=== PATIENT | female | born 1970 | race Caucasian/White ===

== ENCOUNTER 2016-07-17 13:26 | Emergency (ER) | payer OTHER ==
[~2016-07-17] VITALS: Wt 84.5 kg
[~2016-07-17 13:26] MED LIST: ALBU18HF INHALATION; OMEPRAZOLE PO; TAGAMET PO
[2016-07-17 15:42] LABS: ADD UMIC YES; UR BILIRUBIN (Dip) NEGATIVE (NEGATIVE); UR BLOOD (Dip) 2+ (NEGATIVE); UR CLARITY CLEAR (CLEAR); UR COLOR LT. YELLOW (YELLOW); UR GLUCOSE (Dip) NEGATIVE (NEGATIVE); UR KETONES (Dip) NEGATIVE (NEGATIVE); UR LEUKOCYTE ESTERASE (Dip) NEGATIVE (NEGATIVE); UR NITRITE (Dip) NEGATIVE (NEGATIVE); UR TOTAL PROTEIN (Dip) NEGATIVE (NEGATIVE); UR UROBILINOGEN (Dip) 0.2 E.U./dL (0.1-1.0)
[2016-07-17 15:59] LABS: ADD SCAN DIFF NO
[2016-07-17 16:01] LABS: BASOPHILS % 0.2 % (0.0-2.0); EOSINOPHILS % 0.1 % (0.0-7.0); HEMATOCRIT 42.6 % (37.0-47.0); HEMOGLOBIN 14.1 g/dl (12.0-16.0); LYMPHOCYTES # 1.6 10^3/ul (0.8-2.9); LYMPHOCYTES % 9.6 % (15.0-51.0); MEAN CORPUSCULAR HEMOGLOBIN 29.5 pg (29.0-33.0); MEAN CORPUSCULAR HGB CONC 33.1 g/dl (32.0-37.0); MEAN CORPUSCULAR VOLUME 89.1 fl (82.0-101.0); MEAN PLATELET VOLUME 10.8 fl (7.4-10.4); MONOCYTE # 0.5 10^3/ul (0.3-0.9); MONOCYTES % 3.1 % (0.0-11.0); NEUTROPHIL # 14.2 10^3/ul (1.6-7.5); NEUTROPHILS % 86.6 % (39.0-77.0); PLATELET COUNT 295 10^3/UL (140-415); RED BLOOD COUNT 4.78 10^6/ul (4.20-5.40); RED CELL DISTRIBUTION WIDTH 13.1 % (11.5-14.5); WHITE BLOOD COUNT 16.4 10^3/ul (4.8-10.8)
[2016-07-17 16:20] LABS: ALANINE AMINOTRANSFERASE 36 IU/L (13-69); ALBUMIN 4.7 g/dl (3.3-4.9); ALBUMIN/GLOBULIN RATIO 1.74; ALKALINE PHOSPHATASE 66 IU/L (42-121); ANION GAP 13 (8-16); ASPARTATE AMINO TRANSFERASE 22 IU/L (15-46); BILIRUBIN,INDIRECT 0.1 mg/dl (0-1.1); BILIRUBIN,TOTAL 0.1 mg/dl (0.2-1.3); BLOOD UREA NITROGEN 12 mg/dl (7-20); CALCIUM 9.4 mg/dl (8.4-10.2); CARBON DIOXIDE 23 mmol/L (21-31); CHLORIDE 109 mmol/L (97-110); CREATININE 0.73 mg/dl (0.44-1.00); GLUCOSE 128 mg/dl (70-220); POTASSIUM 4.1 mmol/L (3.5-5.1); SODIUM 141 mmol/L (135-144); TOTAL PROTEIN 7.4 g/dl (6.1-8.1)
--- NOTE | 2016-07-17 16:32 | RADRPT ---
PROCEDURE: Chest Radiograph. CLINICAL INDICATION: Chest pain TECHNIQUE: Single frontal chest radiograph. COMPARISON: Chest radiograph 09/16/2012 FINDINGS: The cardiomediastinal silhouette is within normal limits. No infiltrate or effusion is seen. Th e bones are intact. IMPRESSION: 1. Unremarkable chest radiograph. RPTAT: KK .Iftikhar English MD, MD Date Time Electronically viewed and signed by .Iftikhar English MD, on 07/17/2016 16:32 .B/
[2016-07-17 16:33] LABS: TROPONIN-I < 0.012 ng/ml (0.00-0.12)
[2016-07-17] MEDS ORDERED: FAMO-18 PO (17:02)
--- NOTE | 2016-07-17 17:40 | ERD ---
ER Documentation Chief Complaint Date/Time DATE: 07/17/16 TIME: 17:37 Chief Complaint ap today HPI 45-year-old female patient with no significant past medical history presents the ED complaining of left upper quadrant pain, left elbow pain and left ear pain that started 3 days ago. Patient reports that the pain as throbbing. Denies any injuries or trauma. States that her last menses was sometime last week. Reports that she had a normal bowel movement yesterday. Denies any chest pain, shortness of breath, wheezing, nausea, vomiting, diarrhea. ROS All systems reviewed and are negative except as per history of present illness. Medications Home Meds Reported Medications Albuterol Sulfate* (Ventolin HFA*) 18 Gm Hfa.aer.ad, 2 PUFF INHALATION Q4H, #1 INHALER 06/30/15 [Tagamet] No Conflict Check, PO BID 06/30/15 [Omeprazole] No Conflict Check, PO BID 06/30/15 Allergies Allergies: Coded Allergies: Calcium Carbonate (Verified Allergy, Mild, SOB, 09/16/12) Citric Acid (Verified Allergy, Mild, SOB, 09/16/12) acetaminophen (Verified Allergy, Mild, 09/16/12) aspirin (Verified Allergy, Mild, SOB, 09/16/12) sodium bicarbonate (Verified Allergy, Mild, SOB, 09/16/12) ibuprofen (Verified Allergy, Unknown, SOB, DYSPNEA, 06/30/15) PMhx/Soc History of Surgery: Yes (CHOLECYSTECTOMY, TUBAL LIGATION) Anesthesia Reaction: No Hx Neurological Disorder: No Hx Respiratory Disorders: Yes (ASTHMA, DAILY INHALER USE) Hx Cardiac Disorders: Yes (HTN, PREVIOUSLY ON MEDS, NOW DIET CONTROLLED) Hx Psychiatric Problems: No Hx Miscellaneous Medical Probl: No Hx Alcohol Use: No Hx Substance Use: No Hx Tobacco Use: No Smoking Status: Never smoker Physical Exam Vitals Vital Signs Date Time Temp Pulse Resp B/P Pulse Ox O2 Delivery O2 Flow Rate FiO2 07/17/16 13:29 98.9 94 20 145/69 99 Physical Exam Const: [id number], well-nourished. In no acute distress. Head: Atraumatic, normocephalic Eyes: Normal Conjunctiva without injection. No purulent discharge. ENT: Normal external ear, nose. Moist oropharynx without tonsillar exudates. Non -erythematous pharynx. Uvula midline. No drooling. No trismus. Neck: No cervical midline tenderness. Full range of motion. No meningismus. No cervical lymphadenopathy. No JVD. Resp: Clear to auscultation bilaterally. No wheezing, rhonchi, rales, or crackles. No accessory muscle use. No retractions. Cardio: Regular rate and rhythm. No murmurs, rubs or gallops. Abd: Soft, left upper quadrant tenderness, non distended. Normal bowel sounds. No palpable masses. No rebound tenderness. No guarding. Negative McBurney's point. Negative psoas sign. Negative obturator sign. Skin: No petechiae or rashes Back: No midline tenderness. No CVA tenderness. Ext: No cyanosis, or edema. Neur: Awake and alert. Normal gait. Normal coordination. Psych: Normal Mood and Affect Result Diagram: 07/17/16 1545 07/17/16 1545 Results 24 hrs Laboratory Tests Test 07/17/16 15:35 07/17/16 15:45 Urine Color LT. YELLOW Urine Clarity CLEAR Urine pH 5.5 Urine Specific [place] <=1.005 Urine Ketones NEGATIVE Urine Nitrite NEGATIVE Urine Bilirubin NEGATIVE Urine Urobilinogen 0.2 E.U./dL Urine Leukocyte Esterase NEGATIVE Urine Microscopic RBC 2-5/HPF Urine Microscopic WBC NONE SEEN/HPF Urine Epithelial Cells OCCASIONAL Urine Hemoglobin 2+ Urine Glucose NEGATIVE% Urine Total Protein NEGATIVE White Blood Count 16.410^3/ul Red Blood Count 4.7810^6/ul Hemoglobin 14.1g/dl Hematocrit 42.6% Mean Corpuscular Volume 89.1fl Mean Corpuscular Hemoglobin 29.5pg Mean Corpuscular Hemoglobin Concent 33.1g/dl Red Cell Distribution Width 13.1% Platelet Count 93828^3/UL Mean Platelet Volume 10.8fl Neutrophils % 86.6% Lymphocytes % 9.6% Monocytes % 3.1% Eosinophils % 0.1% Basophils % 0.2% Nucleated Red Blood Cells % 0.0/100WBC Neutrophils # 14.210^3/ul Lymphocytes # 1.610^3/ul Monocytes # 0.510^3/ul Eosinophils # 0.010^3/ul Basophils # 0.010^3/ul Nucleated Red Blood Cells # 0.010^3/ul Sodium Level 141mmol/L Potassium Level 4.1mmol/L Chloride Level 109mmol/L Carbon Dioxide Level 23mmol/L Anion Gap 13 Blood Urea Nitrogen 12mg/dl Creatinine 0.73mg/dl Glucose Level 128mg/dl Calcium Level 9.4mg/dl Total Bilirubin 0.1mg/dl Direct Bilirubin 0.00mg/dl Indirect Bilirubin 0.1mg/dl Aspartate Amino Transf (AST/SGOT) 22IU/L Alanine Aminotransferase (ALT/SGPT) 36IU/L Alkaline Phosphatase 66IU/L Troponin I < 0.012ng/ml Total Protein 7.4g/dl Albumin 4.7g/dl Globulin 2.70g/dl Albumin/Globulin Ratio 1.74 Lipase 83U/L Procedures/MDM This is a 45-year-old female patient with a past medical history of asthma and status post cholecystectomy presents to the ED complaining of left upper quadrant, left elbow and ear pain that started yesterday. Patient is afebrile and nontoxic-appearing. Patient has normal vital signs. Patient was further worked up with CBC, CMP, lipase, UA, urine , troponin, CXR. Patient denied wanting any pain medications. CBC: No leukocytosis. No e/o of systemic infection. No e/o anemia. CMP: No e/o severe acidosis, alkalosis, renal failure, diabetic ketoacidosis, liver disease Lipase within normal limits. Urine: No leukocyte esterase, no nitrites, no hematuria. Urine : Negative Troponin < 0.012 PROCEDURE: Chest Radiograph. CLINICAL INDICATION: Chest pain TECHNIQUE: Single frontal chest radiograph. COMPARISON: Chest radiograph 09/16/2012 FINDINGS: The cardiomediastinal silhouette is within normal limits. No infiltrate or effusion is seen. The bones are intact. IMPRESSION: 1. Unremarkable chest radiograph. EKG reviewed and interpreted by Dr. Reis Rate/Rhythm: [89 bpm, Normal Sinus Rhythm] No ectopy, no ST elevations, normal axis. QRS, ST, T-waves: [No changes consistent w/ acute ischemia] Impression: [No evidence of ischemia or arrhythmia] Differentials includes gastritis vs. GERD. Low suspicion for acute myocardial infarction, pneumothorax, pneumonia, cardiac tamponade, pulmonary embolism, AAA , aortic dissection, Boerhaave's syndrome, cardiac dysrhythmias,meningitis, intracranial bleed, seizure, stroke, TIA or other emergent conditions. Low suspicion for cholecystitis, choledocholithiasis, cholangitis, pancreatitis, appendicitis, bowel obstruction, ileus, volvulus, nephrolithiasis, pyelonephritis, hepatitis, perforated viscus, diverticulitis, abdominal hernia, acute abdomen, mesenteric ischemia or other emergent conditions. Follow up with primary care physician in 1-2 days for referral to surgery consultant. Instructed patient to return to the ED sooner for any worsening symptoms. Patient's questions were answered. Patient understood and agreed with discharge plan. Patient discharged stable. Departure Diagnosis: Primary Impression: Abdominal pain Abdominal location: left upper quadrant Qualified Code: R10.12 - Left upper quadrant pain Condition: Stable Patient Instructions: Abdominal Pain Referrals: COUNT INCLUDES THE [facility] YOU HAVE RECEIVED A MEDICAL SCREENING EXAM AND THE RESULTS INDICATE THAT YOU DO NOT HAVE A CONDITION THAT REQUIRES URGENT TREATMENT IN THE EMERGENCY DEPARTMENT. FURTHER EVALUATION AND TREATMENT OF YOUR CONDITION CAN WAIT UNTIL YOU ARE SEEN IN YOUR DOCTORS OFFICE WITHIN THE NEXT 1-2 DAYS. IT IS YOUR RESPONSIBILITY TO MAKE AN APPOINTMENT FOR FOLOW-UP CARE. IF YOU HAVE A PRIMARY DOCTOR --you should call your primary doctor and schedule an appointment IF YOU DO NOT HAVE A PRIMARY DOCTOR YOU CAN CALL OUR PHYSICIAN REFERRAL HOTLINE AT IF YOU CAN NOT AFFORD TO SEE A PHYSICIAN YOU CAN CHOSE FROM THE FOLLOWING [facility] [address] [facility]. [facility] [address] [facility]. [facility] [address] [facility] [address] [facility]. [facility] [address] [facility]. [facility]. [address] [facility]. [facility] YOU HAVE RECEIVED A MEDICAL SCREENING EXAM AND THE RESULTS INDICATE THAT YOU DO NOT HAVE A CONDITION THAT REQUIRES URGENT TREATMENT IN THE EMERGENCY DEPARTMENT. FURTHER EVALUATION AND TREATMENT OF YOUR CONDITION CAN WAIT UNTIL YOU ARE SEEN IN YOUR DOCTORS OFFICE WITHIN THE NEXT 1-2 DAYS. IT IS YOUR RESPONSIBILITY TO MAKE AN APPOINTMENT FOR FOLOW-UP CARE. IF YOU HAVE A PRIMARY DOCTOR --you should call your primary doctor and schedule and appointment IF YOU DO NOT HAVE A PRIMARY DOCTOR YOU CAN CALL OUR PHYSICIAN REFERRAL HOTLINE AT . IF YOU CAN NOT AFFORD TO SEE A PHYSICIAN YOU CAN CHOSE FROM THE FOLLOWING [facility] INSTITUTIONS: [facility] [address] [place] [address] [facility] [place] [place] [address] [place] [address] [facility] [address] [place] [address] [facility] URGENT CARE/SPECIALTIES Additional Instructions: Call your primary care doctor TOMORROW for an appointment during the next 1-2 days for a referral to a surgery consultant.See the doctor sooner or return here if your condition worsens before your appointment time. TY TA PA-C Jul 17, 2016 17:40
== END 2016-07-17 17:11 | disposition home or self-care (01) ==
LOC: FTE 13:26
DX: R10.12 Left upper quadrant pain (principal); I10 Essential (primary) hypertension; J45.909 Unspecified asthma, uncomplicated
CPT/HCPCS: 71010; 80053; 81001; 83690; 84484; 85025; 93005

== ENCOUNTER 2016-11-28 12:15 | Emergency (ER) | payer OTHER ==
[~2016-11-28] VITALS: Ht 157.5 cm; Wt 80.0 kg
[2016-11-28 12:17] VITALS: Ht 157.5 cm; Wt 80.0 kg
[2016-11-28 14:01] LABS: URINE BLOOD (Dip) POC 2+ (NEGATIVE)
--- NOTE | 2016-11-28 15:30 | RADRPT ---
PROCEDURE: US Pelvis CLINICAL INDICATION: pelvic pain TECHNIQUE: Multiple sonographic images of the pelvis were obtained utilizing a transabdominal and endovaginal technique. The images were reviewed on a PACS workstation. COMPARISON: None. LMP: 11/11/2016 FINDINGS: The uterus measures 9.3 x 5.2 x 6.0 cm. There is trace endocervical fluid with a spine level endome trial thickness of 10 mm. Several sub-centimeter Nabothian cysts are identified. There is a 2.5 cm posterior submucosal and subserosal uterine fibroid at the level of the mid body w ith mild anterior displacement of the endometrium. There is a 3.2 cm anterior submucosal uterine fibroid at the level of the upper body with prominent posterior displacement of the endometrium. The right ovary measures 2.2 x 1.4 x 1.8 cm. The left ovary measures 3.6 x 1.7 x 2.5 cm. There is no rmal vascular flow in both ovaries. There is a 1.9 cm thick-walled cystic lesion with low level internal echoes and prominent peripheral vascular flow in the left ovary which is likely a hemorrhagic/corpus luteal cyst. No significant pelvic free fluid is identified. IMPRESSION: 2 submucosal uterine fibroids are identified measuring up to 3.2 cm with displacement of the endomet rium. 1.9 cm complex cystic lesion in the left ovary is likely a hemorrhagic/corpus luteal cyst. Trace endocervical fluid without evidence of abnormal endometrial thickening or vascularity may be r elated to stage of the menstrual cycle. RPTAT: EE Physician Esequiel Date Time Electronically viewed and signed by Physician Esequiel on 11/28/2016 15:29 /
[2016-11-28 15:48] LABS: ADD UMIC YES; UR ASCORBIC ACID NEGATIVE (NEGATIVE); UR BILIRUBIN (Dip) NEGATIVE (NEGATIVE); UR BLOOD (Dip) 2+ mg/dL (NEGATIVE); UR CLARITY CLEAR (CLEAR); UR COLOR YELLOW (YELLOW); UR GLUCOSE (Dip) NEGATIVE (NEGATIVE); UR KETONES (Dip) NEGATIVE (NEGATIVE); UR LEUKOCYTE ESTERASE (Dip) NEGATIVE Leu/ul (NEGATIVE); UR NITRITE (Dip) NEGATIVE (NEGATIVE); UR RBC 3 /HPF (0-5); UR SPECIFIC GRAVITY (Dip) 1.006 (1.003-1.030); UR TOTAL PROTEIN (Dip) NEGATIVE (NEGATIVE); UR UROBILINOGEN (Dip) NEGATIVE (NEGATIVE)
[2016-11-28 16:07] VITALS: BP 158/86; PULSE 85; RESP 16; TEMP 97.9
--- NOTE | 2016-11-28 16:34 | ERD ---
ER Documentation Chief Complaint Chief Complaint lower abd pain/back pain x 2 wks with dysuria. no fevers HPI Patient is a 46-year-old female presenting to the emergency department with complaints of suprapubic pain and increased urinary frequency intermittently for the past 2 weeks. She states her pain radiates to the lower back. She rates 2 out of 10 on the pain scale. Symptoms have worsened. She denies fevers , chills, or other symptoms at this time. ROS All systems reviewed and are negative except as per history of present illness. Medications Home Meds Reported Medications Albuterol Sulfate* (Ventolin HFA*) 18 Gm Hfa.aer.ad, 2 PUFF INHALATION Q4H, #1 INHALER 06/30/15 [Tagamet] No Conflict Check, PO BID 06/30/15 [Omeprazole] No Conflict Check, PO BID 06/30/15 Allergies Allergies: Coded Allergies: acetaminophen (Verified Allergy, Mild, 11/28/16) aspirin (Verified Allergy, Mild, SOB, 11/28/16) calcium carbonate (Verified Allergy, Mild, SOB, 11/28/16) citric acid (Verified Allergy, Mild, SOB, 11/28/16) sodium bicarbonate (Verified Allergy, Mild, SOB, 11/28/16) ibuprofen (Verified Allergy, Unknown, SOB, DYSPNEA, 11/28/16) PMhx/Soc History of Surgery: Yes (CHOLECYSTECTOMY, TUBAL LIGATION) Anesthesia Reaction: No Hx Neurological Disorder: No Hx Respiratory Disorders: Yes (ASTHMA, DAILY INHALER USE) Hx Cardiac Disorders: Yes (HTN, PREVIOUSLY ON MEDS, NOW DIET CONTROLLED) Hx Psychiatric Problems: No Hx Miscellaneous Medical Probl: No Hx Alcohol Use: No Hx Substance Use: No Hx Tobacco Use: No Smoking Status: Never smoker Physical Exam Vitals Vital Signs Date Time Temp Pulse Resp B/P Pulse Ox O2 Delivery O2 Flow Rate FiO2 11/28/16 16:07 97.9 85 16 158/86 96 Room Air 11/28/16 12:17 97.8 89 18 160/98 96 Physical Exam Const: Nontoxic, well-appearing female in no acute distress. Head: Atraumatic Eyes: Normal Conjunctiva ENT: Normal External Ears, Nose and Mouth. Neck: Full range of motion..~ No meningismus. Resp: Clear to auscultation bilaterally Cardio: Regular rate and rhythm, no murmurs Abd: Soft, non tender, non distended. Normal bowel sounds. No suprapubic tenderness. No McBurney's point tenderness. No rebound tenderness or guarding. Skin: No petechiae or rashes Back: No midline or flank tenderness Ext: No cyanosis, or edema Neur: Awake and alert Psych: Normal Mood and Affect Results 24 hrs Laboratory Tests Test 11/28/16 13:50 11/28/16 14:01 Urine Color YELLOW Urine Clarity CLEAR Urine pH 6.0 Urine Specific [place] 1.006 Urine Ketones NEGATIVEmg/dL Urine Nitrite NEGATIVEmg/dL Urine Bilirubin NEGATIVEmg/dL Urine Urobilinogen NEGATIVEmg/dL Urine Leukocyte Esterase NEGATIVELeu/ul Urine Microscopic RBC 3/HPF Urine Microscopic WBC 0/HPF Urine Hemoglobin 2+mg/dL Urine Glucose NEGATIVEmg/dL Urine Total Protein NEGATIVEmg/dl Bedside Urine pH (LAB) 5.5 Bedside Urine Protein (LAB) Negative Bedside Urine Glucose (UA) Negative Bedside Urine Ketones (LAB) Negative Bedside Urine Blood 2+ Bedside Urine Nitrite (LAB) Negative Bedside Urine Leukocyte Esterase (L Negative Procedures/MDM 46-year-old female presenting to the emergency department with complaints of suprapubic pain with radiation to the back. Physical examination is essentially unremarkable. Pelvic ultrasound showed no acute emergencies. See results below for more details. Urinalysis is not concerning for any sign of infection. Patient is given copies of her ultrasound results and was advised to have follow-up with her primary care physician and [facility] physician. Low suspicion for ovarian torsion, ectopic , or other emergent conditions. Medical decision making shared with the patient and she was in agreement. PROCEDURE: US Pelvis CLINICAL INDICATION: pelvic pain TECHNIQUE: Multiple sonographic images of the pelvis were obtained utilizing a transabdominal and endovaginal technique. The images were reviewed on a PACS workstation. COMPARISON: None. LMP: 11/11/2016 FINDINGS: The uterus measures 9.3 x 5.2 x 6.0 cm. There is trace endocervical fluid with a spine level endometrial thickness of 10 mm. Several sub-centimeter Nabothian cysts are identified. There is a 2.5 cm posterior submucosal and subserosal uterine fibroid at the level of the mid body with mild anterior displacement of the endometrium. There is a 3.2 cm anterior submucosal uterine fibroid at the level of the upper body with prominent posterior displacement of the endometrium. The right ovary measures 2.2 x 1.4 x 1.8 cm. The left ovary measures 3.6 x 1.7 x 2.5 cm. There is normal vascular flow in both ovaries. There is a 1.9 cm thick-walled cystic lesion with low level internal echoes and prominent peripheral vascular flow in the left ovary which is likely a hemorrhagic/corpus luteal cyst. No significant pelvic free fluid is identified. IMPRESSION: 2 submucosal uterine fibroids are identified measuring up to 3.2 cm with displacement of the endometrium. 1.9 cm complex cystic lesion in the left ovary is likely a hemorrhagic/corpus luteal cyst. Trace endocervical fluid without evidence of abnormal endometrial thickening or vascularity may be related to stage of the menstrual cycle. Departure Diagnosis: Primary Impression: Corpus luteum cyst Additional Impression: Uterine fibroid Uterine leiomyoma location: unspecified location Qualified Code: D25.9 - Uterine leiomyoma, unspecified location Condition: Fair Patient Instructions: Uterine Fibroids Referrals: [facility] [place] [address] [facility] [address] [place] [address]ME [facility] [address] [place] [address] [address] [address] [place] [address] [address] [facility] [address] [facility], [address], [facility] [address] [address] [place] [address] [facility] [address] [place] [address] [phone] [address] [facility] [address] - [place], [facility] [address] [address] CORDERO, KAREN [address] [facility]. [address], [place] [id number] [address] CONNORS, [place] [address] [place] [address] Additional Instructions: No mas mejor en 2-3 bucio, regresar. Mas peor en 24 horas, regresear rapidamente. Ir a doctor primario en 1-2 bucio. Usar instrucciones cuando gil medicamento. MARTIN DALY PA-C Nov 28, 2016 16:34
== END 2016-11-28 16:08 | disposition home or self-care (01) ==
LOC: FTE 12:15
DX: N83.12 Corpus luteum cyst of left ovary (principal); D25.9 Leiomyoma of uterus, unspecified; I10 Essential (primary) hypertension; J45.909 Unspecified asthma, uncomplicated; R10.2 Pelvic and perineal pain
CPT/HCPCS: 76830; 76856; 81001; Z7502; 81003

== ENCOUNTER 2017-08-07 06:37 | Day surgery (SDC) | END 2017-08-07 12:20 | disposition home or self-care (01) ==

== ENCOUNTER 2017-12-13 16:45 | Emergency (ER) | END 2017-12-13 19:09 | disposition home or self-care (01) ==

== ENCOUNTER 2018-01-07 23:49 | Emergency (ER) | END 2018-01-08 02:05 | disposition home or self-care (01) ==

== ENCOUNTER 2018-10-03 13:24 | Emergency (ER) | payer OTHER ==
[~2018-10-03] VITALS: Ht 162.6 cm; Wt 88.7 kg
[~2018-10-03 13:24] MED LIST changes: +ALBU2.5V3 NEB; +ALBU8.5H8 INH; +AMLO5TAB4 PO; +BENZ-6 PO; +BENZ200C68 PO; +FLUT1BLS INHALATION; +GUAI5SYR2 PO; +LORA10TA3 PO; +OMEP20CA16 PO; -OMEPRAZOLE PO; +PRED20TA PO; +RANI300T PO; -TAGAMET PO
[2018-10-03 13:27] VITALS: BP 175/97; Ht 162.6 cm; Wt 88.7 kg
[2018-10-03] MEDS ORDERED: ALBUTEROL 0.5% (NEB) 2.5 MG/0.5 ML AMP INH STA (13:50)
[2018-10-03] MEDS ORDERED: LEVALBUTEROL (NEB) 1.25 MG/0.5 ML AMP INH STA (13:50)
[2018-10-03] MEDS ORDERED: SOD CHLORIDE 0.9% 1,000 ML IV STA (13:50)
[2018-10-03] MEDS ORDERED: DEXAMETHASONE 10 MG/ML 1 ML INJ IV STA (13:50)
[2018-10-03 15:38] VITALS: PULSE 100; RESP 18
== END 2018-10-03 15:38 | disposition home or self-care (01) ==
LOC: FTE 13:24
DX: J45.41 Moderate persistent asthma with (acute) exacerbation (principal); I10 Essential (primary) hypertension
CPT/HCPCS: 36415; 71045; 80048; 85025; 94644; 96361; 96374; J1100; J7030; Z7502; Z7610

== ENCOUNTER 2018-10-03 19:41 | Emergency (ER) | payer OTHER ==
[~2018-10-03] VITALS: Ht 157.5 cm; Wt 89.9 kg
[2018-10-03 19:47] VITALS: Ht 157.5 cm; Wt 89.9 kg
[2018-10-03] MEDS ORDERED: SOD CHLORIDE 0.9% 1,000 ML IV ONE (21:00)
[2018-10-03] MEDS ORDERED: LORAZEPAM 2 MG INJ IV ONE (21:30)
[2018-10-03 22:27] VITALS: BP 135/70; PULSE 112; RESP 19
== END 2018-10-03 22:43 | disposition home or self-care (01) ==
LOC: E/R 19:41
DX: R20.0 Anesthesia of skin (principal); J45.909 Unspecified asthma, uncomplicated; I10 Essential (primary) hypertension
CPT/HCPCS: 36415; 70450; 70496; 70498; 80048; 80061; 80307; 82550; 82553; 83036; 84484; 85025; 85610; 85730; 93005; 96374; J2060; J7030; Z7502